=== PATIENT | female | born 1965 | race Caucasian/White ===

== ENCOUNTER 2019-02-17 08:37 | Emergency (ER) | payer BC ==
--- NOTE | 2019-02-17 08:53 | EDM.PDOC ---
ED HPI GENERAL MEDICAL PROBLEM - General Chief Complaint: Chest Pain Stated Complaint: CHEST TIGHTNESS Time Seen by Provider: 02/17/19 08:45 - History of Present Illness INITIAL COMMENTS - FREE TEXT/NARRATIVE: 54-year-old female presents emergency room with chest pain. This is an on-and-off chest pain that started a couple of days ago. It is aggravated by change of position and sometimes deep breathing. The patient has no history of coronary artery disease no history of hypertension hyperlipidemia she does not smoke. However, the patient does not have a regular physician. The only precipitating factor for the chest discomfort is changing positions. She is not having any discomfort at this time as long as she still if she gets repositioned she has some discomfort. She does not have a cough or cold she has not had any recent fevers or chills. Turning from side to side seems to be the worst trigger for the chest discomfort. Chest Pain Score (Numeric/FACES): 1 - Related Data Allergies Allergy/AdvReac Type Severity Reaction Status Date / Time No Known Allergies Allergy Verified 02/17/19 08:48 Home Meds: Home Meds . [No Known Home Meds] 02/17/19 [History] ED ROS GENERAL - Review of Systems Review Of Systems: See Below Constitutional: Reports: No Symptoms HEENT: Reports: No Symptoms Respiratory: Reports: Pleuritic Chest Pain. Denies: Shortness of Breath, Cough , Sputum, Hemoptysis Cardiovascular: Reports: Chest Pain (Only was position change) GI/Abdominal: Reports: No Symptoms : Reports: No Symptoms Neurological: Reports: No Symptoms ED EXAM, GENERAL - Physical Exam Exam: See Below Exam Limited By: No Limitations General Appearance: Alert, No Apparent Distress Head: Atraumatic, Normocephalic Neck: Normal Inspection, Supple, Non-Tender, Full Range of Motion. No: Carotid Bruit, Lymphadenopathy (L), Lymphadenopathy (R) Respiratory/Chest: No Respiratory Distress, Lungs Clear, Normal Breath Sounds Cardiovascular: Regular Rate, Rhythm, No Edema, No Murmur GI/Abdominal: Normal Bowel Sounds, Soft, Non-Tender, No Organomegaly, No Distention, No Abnormal Bruit, No Mass Extremities: Non-Tender, No Pedal Edema Neurological: Alert, Oriented, Normal Cognition Psychiatric: Normal Affect, Normal Mood Skin Exam: Warm, Dry, Intact EKG INTERPRETATION EKG Date: 02/17/19 Rhythm: NSR [place]: Normal P-Wave: Present QRS: Normal ST-T: Other (Nondiagnostic ST depression in V3 4 and 5 as well as lead 2 mild artifact in the inferior leads) QT: Normal Comparison: NA - No Prior EKG EKG Interpretation Comments: Borderline EKG Course - Vital Signs Last Recorded V/S: Last Vital Signs Temp 36.3 C 02/17/19 08:43 Pulse 74 02/17/19 08:43 Resp 12 02/17/19 08:43 BP 127/88 02/17/19 08:43 Pulse Ox 97 02/17/19 08:43 - Orders/Labs/Meds Orders: Active Orders 24 hr Category Date Time Status EKG Documentation Completion [RC] STAT Care 02/17/19 08:53 Active Chest 1V Frontal [CR] Stat Exams 02/17/19 08:53 Taken Labs: Laboratory Tests 02/17/19 02/17/19 02/17/19 Range/Units 09:17 09:17 09:17 WBC 3.61 L (3.98-10.04) K/mm3 RBC 4.35 (3.98-5.22) M/mm3 Hgb 12.3 (11.2-15.7) gm/L Hct 37.8 (34.1-44.9) % MCV 86.9 (79.4-94.8) fl MCH 28.3 (25.6-32.2) pg MCHC 32.5 (32.2-35.5) g/dl RDW Std Deviation 41.7 (36.4-46.3) fL Plt Count 184 (182-369) K/mm3 MPV 9.9 (9.4-12.3) fl Neutrophils % (Manual) 55 (40-60) % Band Neutrophils % 0 (0-10) % Lymphocytes % (Manual) 39 (20-40) % Atypical Lymphs % 0 % Monocytes % (Manual) 5 (2-10) % Eosinophils % (Manual) 1 (0.7-5.8) % Basophils % (Manual) 0 L (0.1-1.2) Platelet Estimate Adequate RBC Morph Comment Normal PT 10.7 (9.7-12.0) SECONDS INR 0.98 APTT 27 (22-31) SECONDS D-Dimer, Quantitative < 0.19 L (0.19-0.50) mg/L Sodium 141 (136-145) mEq/L Potassium 3.9 (3.5-5.1) mEq/L Chloride 105 (98-107) mEq/L Carbon Dioxide 27 (21-32) mEq/L Anion Gap 12.9 (5-15) BUN 21 H (7-18) mg/dL Creatinine 0.8 (0.55-1.02) mg/dL Est Cr Clr Drug Dosing 77.75 mL/min Estimated GFR (MDRD) > 60 (>60) mL/min BUN/Creatinine Ratio 26.3 H (14-18) Glucose 94 (74-106) mg/dL Calcium 9.8 (8.5-10.1) mg/dL Total Bilirubin 0.3 (0.2-1.0) mg/dL AST 17 (15-37) U/L ALT 33 (14-59) U/L Alkaline Phosphatase 46 (46-116) U/L Troponin I < 0.017 (0.00-0.056) ng/mL Total Protein 7.3 (6.4-8.2) g/dl Albumin 3.8 (3.4-5.0) g/dl Globulin 3.5 gm/dL Albumin/Globulin Ratio 1.1 (1-2) Meds: Medications Discontinued Medications Generic Name Dose Route Start Last Admin Trade Name Jose Antonioq PRN Reason Stop Dose Admin Aspirin 324 mg 02/17/19 08:54 02/17/19 09:11 Aspirin PO 02/17/19 08:55 324 mg ONETIME ONE Administration - Re-Assessments/Exams Free Text/Narrative Re-Assessment/Exam: 02/17/19 11:23 AP chest portable shows no acute pulmonary changes. Laboratory evaluation is unrevealing troponin is normal d-dimer is a little lower than normal labs otherwise unremarkable. Did offer second troponin patient would like to go home did discuss taking a baby aspirin daily the patient like to hold off on this. She will follow-up with the provider. And she agrees to return to the emergency room with worsening problems, or any questions. Departure - Departure Time of Disposition: 11:24 Disposition: Home, Self-Care 01 Clinical Impression: Chest pain Referrals: PCP,None [Primary Care Provider] - Forms: ED Department Discharge Additional Instructions: Return to emergency room if any questions or worsening problems. Follow-up in the Hospital clinic next week for recheck [id number]. If you change your mind take a baby aspirin preferably enteric-coated 81 mg daily. - My Orders Last 24 Hours: My Active Orders 02/17/19 08:53 EKG Documentation Completion [RC] STAT Chest 1V Frontal [CR] Stat - Assessment/Plan Last 24 Hours: My Active Orders 02/17/19 08:53 EKG Documentation Completion [RC] STAT Chest 1V Frontal [CR] Stat
[2019-02-17] MEDS ORDERED: Aspirin 81 MG Tab.Chew PO ONE (08:54)
--- NOTE | 2019-02-18 09:11 | CR ---
Chest: Portable view of the chest was obtained. Comparison: No prior chest imaging. Heart size and mediastinum are normal. Lungs are clear. Minimal scoliosis is noted within the spine. No acute osseous abnormality is appreciated. Impression: 1. Slight scoliosis. Nothing acute is appreciated on portable chest x-ray. Diagnostic code #2
== END 2019-02-17 11:50 | disposition home or self-care (01) ==
LOC: JD.ED 08:37
DX: R07.9 Chest pain, unspecified (principal)
CPT/HCPCS: 36415; 71045; 80053; 84484; 85007; 85027; 85379; 85610; 85730; 93005; 99285; A9270